=== PATIENT | female | born 1990 | race Caucasian/White ===

== ENCOUNTER 2017-12-03 18:00 | Inpatient (IN) | payer MEDICAID ==
[2017-12-03 19:42] LABS: ADD UMIC YES; UR ASCORBIC ACID NEGATIVE (NEGATIVE); UR BILIRUBIN (Dip) NEGATIVE (NEGATIVE); UR BLOOD (Dip) 3+ mg/dL (NEGATIVE); UR CLARITY SLIGHTLY CLOUDY (CLEAR); UR COLOR STRAW (YELLOW); UR GLUCOSE (Dip) NEGATIVE (NEGATIVE); UR KETONES (Dip) NEGATIVE (NEGATIVE); UR LEUKOCYTE ESTERASE (Dip) NEGATIVE Leu/ul (NEGATIVE); UR NITRITE (Dip) NEGATIVE (NEGATIVE); UR RBC 0 /HPF (0-5); UR SPECIFIC GRAVITY (Dip) 1.004 (1.003-1.030); UR TOTAL PROTEIN (Dip) NEGATIVE (NEGATIVE); UR UROBILINOGEN (Dip) NEGATIVE (NEGATIVE); UR WBC 2 /HPF (0-5)
[2017-12-03] MEDS ORDERED: LACTATED RINGER'S 1,000 ML IV (20:11)
[2017-12-03] MEDS ORDERED: BUTORPHANOL 2 MG INJ IV (20:30)
[2017-12-03] MEDS ORDERED: MISOPROSTOL 200 MCG TAB PR (20:30)
[2017-12-03] MEDS ORDERED: AMPICILLIN 2 GM/NS (PMX) 100 ML IV (20:30)
[2017-12-03] MEDS ORDERED: IBUPROFEN 600 MG TAB PO (20:30)
[2017-12-03] MEDS ORDERED: OXYTOCIN 30 UNITS/LR 500 ML IV (20:30)
[2017-12-03] MEDS ORDERED: CARBOPROST 250 MCG INJ IM (20:30)
[2017-12-03] MEDS ORDERED: LIDOCAINE 1% (MPF) 30 ML INJ INJ (20:30)
[2017-12-03] MEDS ORDERED: METHYLERGONOVINE 0.2 MG INJ IM (20:30)
[2017-12-03] MEDS: BETAMET NA PHOS/AC(6 MG/ML) 5ML INJ IM (20:55)
[2017-12-03] MEDS: TERBUTALINE 1 MG/ML INJ SC (20:55)
[2017-12-03] MEDS: LACTATED RINGER'S 1,000 ML IV* ×2 (21:33→23:07)
[2017-12-03 21:56] LABS: ADD MAN DIFF? NO
[2017-12-03 22:02] LABS: BASOPHILS % 0.1 % (0.0-2.0); EOSINOPHILS # 0.1 10^3/ul (0.0-0.5); EOSINOPHILS % 0.7 % (0.0-7.0); HEMATOCRIT 32.5 % (37.0-47.0); HEMOGLOBIN 10.8 g/dl (12.0-16.0); LYMPHOCYTES # 4.3 10^3/ul (0.8-2.9); LYMPHOCYTES % 30.7 % (15.0-51.0); MEAN CORPUSCULAR HEMOGLOBIN 29.6 pg (29.0-33.0); MEAN CORPUSCULAR HGB CONC 33.2 g/dl (32.0-37.0); MONOCYTE # 0.8 10^3/ul (0.3-0.9); MONOCYTES % 5.6 % (0.0-11.0); NEUTROPHIL # 8.6 10^3/ul (1.6-7.5); NEUTROPHILS % 62.4 % (39.0-77.0); PLATELET COUNT 267 10^3/UL (140-415); RED BLOOD COUNT 3.65 10^6/ul (4.20-5.40); RED CELL DISTRIBUTION WIDTH 13.9 % (11.5-14.5)
[2017-12-03 22:02] LABS: WHITE BLOOD COUNT 13.8 10^3/ul (4.8-10.8)
[2017-12-03 22:21] LABS: INR 0.86; PROTIME 11.8 Sec (11.9-14.9); PT RATIO 0.9
[2017-12-03 22:22] LABS: PARTIAL THROMBOPLASTIN TIME 29.8 Sec (25.0-35.0)
[2017-12-03 22:49] LABS: HEPATITIS B SURFACE ANTIGEN NEGATIVE (NEGATIVE)
[2017-12-04] MEDS ORDERED: AMPICILLIN 1 GM/NS (PMX) 50 ML IV (00:30)
[2017-12-04] MEDS: OXYTOCIN 30 UNITS/LR 500 ML IV ×3 (01:30→06:38)
[2017-12-04] MEDS: LACTATED RINGER'S 1,000 ML IV* ×3 (02:01→18:01)
[2017-12-04] MEDS ORDERED: CARBOPROST 250 MCG INJ IM (02:30)
[2017-12-04] MEDS ORDERED: OXYTOCIN 30 UNITS/LR 500 ML IV (02:30)
[2017-12-04] MEDS ORDERED: METHYLERGONOVINE 0.2 MG INJ IM (02:30)
[2017-12-04] MEDS ORDERED: MISOPROSTOL 200 MCG TAB PR (02:30)
[2017-12-04] MEDS: IBUPROFEN 600 MG TAB PO ×4 (06:18→23:46)
[2017-12-04] MEDS: BENZOCAINE 20% 56 ML SPRAY TOP (06:44)
[2017-12-04 16:28] LABS: RAPID PLASMA REAGIN NONREACTIVE (NR)
[2017-12-05] MEDS: LACTATED RINGER'S 1,000 ML IV* ×3 (02:01→18:01)
[2017-12-05] MEDS: IBUPROFEN 600 MG TAB PO ×3 (05:36→18:00)
[2017-12-05 07:32] LABS: ADD MAN DIFF? NO
[2017-12-05 07:35] LABS: WHITE BLOOD COUNT 14.4 10^3/ul (4.8-10.8)
[2017-12-05 07:35] LABS: BASOPHILS % 0.1 % (0.0-2.0); EOSINOPHILS % 0.3 % (0.0-7.0); HEMATOCRIT 30.8 % (37.0-47.0); HEMOGLOBIN 9.9 g/dl (12.0-16.0); LYMPHOCYTES # 2.4 10^3/ul (0.8-2.9); LYMPHOCYTES % 16.9 % (15.0-51.0); MEAN CORPUSCULAR HEMOGLOBIN 28.4 pg (29.0-33.0); MEAN CORPUSCULAR HGB CONC 32.1 g/dl (32.0-37.0); MEAN CORPUSCULAR VOLUME 88.5 fl (82.0-101.0); MEAN PLATELET VOLUME 11.2 fl (7.4-10.4); MONOCYTE # 0.8 10^3/ul (0.3-0.9); MONOCYTES % 5.8 % (0.0-11.0); NEUTROPHILS % 76.2 % (39.0-77.0); PLATELET COUNT 262 10^3/UL (140-415); RED BLOOD COUNT 3.48 10^6/ul (4.20-5.40); RED CELL DISTRIBUTION WIDTH 14.3 % (11.5-14.5)
[2017-12-05] MEDS: HYDROCODONE/APAP (5/325) TAB PO (16:44)
[2017-12-06] MEDS: IBUPROFEN 600 MG TAB PO ×3 (00:23→12:50)
[2017-12-06] MEDS: LACTATED RINGER'S 1,000 ML IV* (02:01)
[2017-12-06] MEDS: DIPHTH/TET/ACEL PERTUSS (ADULT) 0.5 ML VIAL IM* (09:00)
[2017-12-06] MEDS: HYDROCODONE/APAP (5/325) TAB PO (14:22)
== END 2017-12-06 17:37 | disposition home or self-care (01) | DRG 775 ==
LOC: OBT 18:00 → PP1 12-04 03:26 → L-D 18:02 → OBT 20:02 → L-D 20:02
PROC: 10E0XZZ Delivery of Products of Conception, External Approach (ICD-10-PCS; principal; 2017-12-04)
PROC: 0HQ9XZZ Repair Perineum Skin, External Approach (ICD-10-PCS; 2017-12-04)
DX: O60.14X0 Preterm labor third trimester with preterm delivery third trimester, not applicable or unspecified (principal); O69.81X0 Labor and delivery complicated by cord around neck, without compression, not applicable or unspecified; O70.0 First degree perineal laceration during delivery; Z3A.36 36 weeks gestation of pregnancy; Z37.0 Single live birth
CPT/HCPCS: 36415; 76815; 76818; 81001; 85025; 85610; 85730; 86592; 86850; 86900; 86901; 87086; 87340; 96372

== ENCOUNTER 2018-12-06 22:00 | Emergency (ER) | payer MEDICAID ==
[2018-12-06] MEDS: FLUORESCEIN STRIP RIGHT EYE (22:56)
[2018-12-06] MEDS: TETRACAINE 0.5% 4 ML OPH RIGHT EYE (22:56)
[2018-12-06] MEDS: HYDROCODONE/APAP (5/325) TAB PO (22:57)
[2018-12-06] MEDS: ONDANSETRON (ODT) 4 MG TAB ODT (22:57)
[2018-12-07] MEDS: CEFEPIME 1GM/50 ML (PMX) 50 ML IVPB (10:26)
[2018-12-07] MEDS: VANCOMYCIN 1 GM (PMX) 250 ML IVPB (10:56)
[2018-12-07] MEDS ORDERED: DIPHENHYDRAMINE 50 MG INJ (11:26)
[2018-12-07] MEDS ORDERED: DIPHENHYDRAMINE 50 MG INJ IV (11:30)
[2018-12-07] MEDS: DIPHENHYDRAMINE 50 MG INJ IV (11:34)
== END 2018-12-07 12:22 | disposition home or self-care (01) ==
LOC: FTE 22:00 → E/R 12-07 12:22
DX: S05.31XA Ocular laceration without prolapse or loss of intraocular tissue, right eye, initial encounter (principal); W22.8XXA Striking against or struck by other objects, initial encounter; Y92.9 Unspecified place or not applicable
CPT/HCPCS: 76536; 96365; 96367; 96375; 99285-25